=== PATIENT | male | born 1955 | race Caucasian/White ===

== ENCOUNTER → 2025-08-21 08:11 | Outpatient (REF) | payer MEDICARE, OTHER, SELFPAY | LOC: HWRCS 08:11 | PROVIDERS: ATTENDING PHYSICIAN Internal Medicine; FAMILY PHYSICIAN Family Medicine | DX: I34.1 Nonrheumatic mitral (valve) prolapse (principal); I34.0 Nonrheumatic mitral (valve) insufficiency | CPT/HCPCS: 93306 ==

== ENCOUNTER → 2025-09-27 14:29 | Outpatient (REF) | payer MEDICARE, OTHER, SELFPAY | LOC: DHSLP 14:29 | PROVIDERS: ATTENDING PHYSICIAN Internal Medicine Critical Care Medicine; FAMILY PHYSICIAN Family Medicine | DX: G47.30 Sleep apnea, unspecified (principal); R06.83 Snoring | CPT/HCPCS: 95800 ==